=== PATIENT | female | born 1995 | race Two or more races ===

== ENCOUNTER 2017-07-21 15:49 | Emergency (ER) | payer SELFPAY ==
[~2017-07-21] VITALS: Ht 162.6 cm; Wt 52.4 kg
[2017-07-21 16:45] LABS: BASOPHIL (%) 0.4 % (0-1); BASOPHIL COUNT 0.1 K/uL (0-0.1); EOSINOPHIL (%) 2.1 % (0-5); EOSINOPHIL COUNT 0.3 K/uL (0-0.3); HEMATOCRIT 38.3 % (36.0-46.0); IMMATURE GRANULOCYTE (%) 0.4 % (0.0-0.7); LYMPHOCYTE (%) 15.5 % (15-42); LYMPHOCYTE COUNT 1.9 K/uL (1.0-2.8); MCH 30.4 PG (29.0-34.0); MCHC 33.9 G/DL (30.0-36.0); MCV 89.7 FL (83-99); MONOCYTE (%) 4.6 % (3-12); MONOCYTE COUNT 0.6 K/uL (0-0.8); NEUTROPHIL COUNT 9.5 K/uL (1.8-6.4); PLATELET COUNT 252 K/uL (156-360); RBC DIS.WIDTH-CV 13.5 % (11.8-14.6); RED BLOOD COUNT 4.27 M/uL (3.80-5.20); WHITE BLOOD COUNT 12.3 K/uL (4.1-10.2)
[2017-07-21 16:51] LABS: CHLORIDE 108 mEq/L (99-109); SODIUM 138 mEq/L (136-147)
[2017-07-21 16:53] LABS: GLUCOSE 89 mg/dL (70-99)
[2017-07-21 16:57] LABS: CREATININE 0.7 mg/dL (0.6-1.3)
[2017-07-21 16:58] LABS: GFR ESTIMATE (CALCULATED) > 59 mL/min/; UREA NITROGEN (BUN) 9 mg/dL (9-23)
[2017-07-21] MEDS ORDERED: KEPPRA500 MG PO (18:03)
[2017-07-21] MEDS ORDERED: PERCOCET 5/31 TABLET PO (18:03)
[2017-07-21] MEDS ORDERED: SILVADENE20 GM TP (18:35)
[2017-07-21 18:43] VITALS: BP 106/68
== END 2017-07-21 18:44 | disposition home or self-care (01) ==
LOC: EME 15:49
PROVIDERS: Emergency Medicine
DX: R56.9 Unspecified convulsions (principal); T24.212A Burn of second degree of left thigh, initial encounter; T24.111A Burn of first degree of right thigh, initial encounter; X19.XXXA Contact with other heat and hot substances, initial encounter; Y92.003 Bedroom of unspecified non-institutional (private) residence as the place of occurrence of the external cause; F17.200 Nicotine dependence, unspecified, uncomplicated; Z88.0 Allergy status to penicillin
CPT/HCPCS: 80048; 85025; 99281; 99283